=== PATIENT | female | born 1980 | race Caucasian/White ===

== ENCOUNTER → 2016-06-07 11:26 | Day surgery (SDC) | payer BC ==
[~2016-06-07 11:26] MED LIST: Buffered Lidocaine 1% SYRIN* 3 ML/SYR SYRINGE INTRADERM ONE; Bupivacaine 0.25% EPI 200,000* 30 ML SDV ONE; Bupivacaine 0.5% W/EPI SDV* 30 ML VIAL ONE; Dexamethasone IV* 4 MG/ML 1 ML (4 MG) ONE; Famotidine IV* 10 MG/ML 2 ML (20 mg) IV ONE; Famotidine IV* 10 MG/ML 2 ML (20 mg) ONE; Gelfoam Sponge SIZE 100* SPONGE ONE; HYDROmorphone* 1 MG/ML 1 ML SYR IV PRN; KETAMINE HCL* 50 MG/ML 10 ML VIAL ONE; Ketorolac INJ* 30 MG/ML 1 ML VIAL ONE; Lidocaine 2% PF* 5 ML VIAL ONE; Methylene Blue 1% (ANTIDOTE)* 10 MG/ML 1 ML SDV VIAL IVPB ONE; Metoclopramide TAB* 10 MG ONE; Metoclopramide TAB* 10 MG PO ONE; Midazolam* 1 MG/ML 2 ML VIAL (2 MG) ONE; Midazolam* 1 MG/ML 5 ML VIAL (5 MG) ONE; Onabotulinimtoxina 100 UNITS* VIAL ONE; Ondansetron INJ* 2 MG/ML VIAL IV PRN; Ondansetron INJ* 2 MG/ML VIAL ONE; Propofol* 10 MG/ML 20 ML BTL IV PUSH ONE; ceFAZolin 2 GM PREMIX(*) 2 GM/50 ML BAG IVPB ONE; fentaNYL* 50 MCG/ML 2 ML VIAL (100 MCG VIAL) IV PRN; fentaNYL* 50 MCG/ML 2 ML VIAL (100 MCG VIAL) ONE; oxyCODONE/Acetamin 5/325 MG* TAB PO PRN
[2016-06-07 13:32] LABS: Manual Entry Verification MD; UR Preg Internal Control QC Line Present
--- NOTE | 2016-06-07 15:40 | SURGPN ---
Brief Operative Note - Surgery Procedures: Procedures Pre-OP Diagnoses: Perianal pain Post-op Diagnosis: Chronic anal fissure Procedure: exam under anesthesia, botox injection Surgeon: Yohan Asst: Calista Anethesia: Jad Farrar EBL: minimal IVF: minimal Specimen: none Drains: none Complications: None
[2016-06-07 16:46] VITALS: BP 120/82
--- NOTE | 2016-06-08 16:53 | OP ---
DATE OF OPERATION: 06/07/16 [facility] DATE OF : 84 SURGEON: Abraham Almanzar MD PROCESS SAFETY MANAGER: TANIA Berry ANESTHESIOLOGIST: Dr. Farrar ANESTHESIA: Local MAC anesthesia. PRE-OP DIAGNOSIS: Perianal pain. POST-OP DIAGNOSIS: Chronic anal fissure. OPERATIVE PROCEDURE: Exam under anesthesia and Botox injection. ESTIMATED BLOOD LOSS: Minimal. FLUIDS: Minimal crystalloid given. SPECIMEN: None. DRAINS: None. COMPLICATIONS: None. DESCRIPTION OF PROCEDURE: The patient was identified in the preoperative area. Case was discussed with both with her and her again. We went over the risks, benefits, and alternatives to the procedure and consent was signed. She was taken to the operating room and placed in the operating table in the prone position. Gentle sedation was given. The patient's buttocks were taped apart and perineum was prepped with Betadine. The patient was draped and time- out was performed. We dilated the anus to surgeon's fingers. This was tight and difficult. Anal retractors were then inserted and an anterior fissure approximately 1 cm in size was identified. We could see the exposure of the muscle fibers below. There was no significant exudative tissue. It did bleed but this likely more from acute issue, more than the chronic issue. I reviewed the abdomen. There were some mild hemorrhoidal tissue but nothing significant. There were no active bleeding from this. No other fissures were identified and there was no evidence of abscess. With the diagnosis of anal fissure, the 100 units of Botox were reconstituted in 2 cc of saline and approximately 0.5 cc was injected in the each quadrant of the internal sphincter. I injected lidocaine with epinephrine as well around the anal sphincter and we did cauterize the edge of anal fissure where there had some some acute bleeding. The patient tolerated the procedure well. A portion of Gelfoam was inserted into the anal canal and the patient was woken up and transferred to PACU in stable condition. CC: [facility]; Parveen Anthony MD* [id number]/[facility] #: [id number] ISABELLE
== END | disposition home or self-care (01) ==
LOC: OR 11:26
PROVIDERS: ATTEND Surgery
DX: K60.1 Chronic anal fissure (principal)
CPT/HCPCS: 81025; A9270-GY; J0585; J0690; J1100; J1885; J2250; J2405; J2704; J3010